=== PATIENT | female | born 2000 | race Two or more races ===

== ENCOUNTER 2020-06-09 17:02 | Emergency (ER) | payer OTHER ==
[~2020-06-09] VITALS: Ht 157.5 cm; Wt 70.3 kg
== END 2020-06-09 21:20 | disposition home or self-care (01) ==
LOC: ER 17:02
DX: N92.1 Excessive and frequent menstruation with irregular cycle (principal)

== ENCOUNTER 2025-07-06 13:36 | Emergency (ER) | payer OTHER ==
[~2025-07-06] VITALS: Ht 157.5 cm; Wt 86.2 kg
[2025-07-06] MEDS ORDERED: [UNRECOGNIZED DRUG - OTHER] PO (14:54)
[2025-07-06] MEDS ORDERED: CHILDREN'S ASPI81 MG PO (14:55)
[2025-07-06 16:05] LABS: BASO % 0.3 % (0.1-1.2); EOS # 0.06 (0.04-0.54); EOS % 0.5 % (0.7-7.0); LYMPH # 2.10 (1.18-3.74); LYMPH % 17.9 % (19.3-53.1); MEAN PLATELET VOLUME 9.00 fl (9.4-12.4); MONO # 0.55 (0.24-0.82); MONO % 4.7 % (4.7-12.5); NEUT # 8.98 (1.56-6.13); NEUT % 76.3 % (34.0-71.1); RED CELL DISTRIBUTION WIDTH 11.4 % (11.6-14.4)
[2025-07-06 16:54] LABS: BUN CREA RATIO 19.0 (7.0-25.0); CREATININE SERUM 0.53 mg/dL (0.55-1.02); GFR 140.55; GLUCOSE FASTING 94.0 mg/dL (65-100); OSMOLALITY SERUM 278.0 MOSM/KG (275-295)
[2025-07-06 16:56] LABS: URINE APPEARANCE Clear; URINE BILIRRUBIN Negative (NEGATIVE); URINE BLOOD Small; URINE COLOR Yellow; URINE GLUCOSE Negative (NEGATIVE); URINE KETONE Trace (NEGATIVE); URINE LEUKOCYTE Trace; URINE NITRATE Negative; URINE PROTEIN Negative (NEGATIVE); URINE UROBILINOGEN 0.2 E.U./dl
[2025-07-06 16:59] LABS: URINE BACTERIA 612.9 uL (0.0-1933); URINE EPITHELIAL CELLS 12.1 uL (0.0-38.8); URINE RBC 3.6 uL (0.0-20.8); URINE WBC 9.0 uL (0.0-23.2)
[2025-07-06 17:03] LABS: URINE CAST 0.14 uL (0.0-1.40)
[2025-07-06 17:35] LABS: HCG QUANTITATIVE 4119.0 mUI/mL (1-3)
== END 2025-07-06 19:56 | disposition home or self-care (01) ==
LOC: ER 13:36
PROVIDERS: Emergency Medicine
DX: O20.8 Other hemorrhage in early pregnancy (principal); Z3A.01 Less than 8 weeks gestation of pregnancy

== ENCOUNTER 2025-07-16 08:27 | Emergency (ER) | payer OTHER ==
[~2025-07-16] VITALS: Ht 152.4 cm; Wt 83.5 kg
[~2025-07-16 08:27] MED LIST: CHILDREN'S ASPI81 MG PO; [UNRECOGNIZED DRUG - OTHER] PO
[2025-07-16 09:41] LABS: BASO % 0.5 % (0.1-1.2); EOS # 0.08 (0.04-0.54); EOS % 1.0 % (0.7-7.0); LYMPH # 1.71 (1.18-3.74); LYMPH % 20.7 % (19.3-53.1); MEAN PLATELET VOLUME 8.90 fl (9.4-12.4); MONO # 0.42 (0.24-0.82); MONO % 5.1 % (4.7-12.5); NEUT # 5.98 (1.56-6.13); NEUT % 72.5 % (34.0-71.1); RED CELL DISTRIBUTION WIDTH 11.7 % (11.6-14.4)
== END 2025-07-16 18:10 | disposition home or self-care (01) ==
LOC: ER 08:27
PROVIDERS: General Practice
DX: O20.8 Other hemorrhage in early pregnancy (principal); Z3A.08 8 weeks gestation of pregnancy

== ENCOUNTER 2025-07-23 08:30 | Emergency (ER) | payer OTHER ==
[~2025-07-23] VITALS: Ht 157.5 cm; Wt 83.5 kg
[2025-07-23] MEDS ORDERED: RINGERS SOLUTION,LACTATED 1,000 ML IV SCH (09:00)
[2025-07-23] MEDS ORDERED: MORPHINE SULFATE 4 MG/ML VIAL IV ONE (09:00)
[2025-07-23 09:22] LABS: BASO % 0.4 % (0.1-1.2); EOS # 0.10 (0.04-0.54); EOS % 0.9 % (0.7-7.0); LYMPH # 2.43 (1.18-3.74); LYMPH % 22.6 % (19.3-53.1); MEAN PLATELET VOLUME 8.80 fl (9.4-12.4); MONO # 0.54 (0.24-0.82); MONO % 5.0 % (4.7-12.5); NEUT # 7.61 (1.56-6.13); NEUT % 70.8 % (34.0-71.1); RED CELL DISTRIBUTION WIDTH 11.1 % (11.6-14.4)
[2025-07-23 09:58] LABS: INR 1.07
[2025-07-23 10:16] LABS: ALT/SGPT 28.0 U/L (12-78); AST/SGOT 15.0 U/L (15-37); BILIRUBIN TOTAL 0.46 mg/dL (0.3-1.2); BUN CREA RATIO 16.0 (7.0-25.0); CREATININE SERUM 0.49 mg/dL (0.55-1.02); GFR 153.88; GLOBULINA 3.3 G/DL (2.4-3.5); GLUCOSE FASTING 88.0 mg/dL (65-100); HCG QUANTITATIVE 6348.0 mUI/mL (1-3); OSMOLALITY SERUM 277.0 MOSM/KG (275-295)
== END 2025-07-23 14:21 | disposition home or self-care (01) ==
LOC: ER 08:30
PROVIDERS: General Practice
DX: N93.8 Other specified abnormal uterine and vaginal bleeding (principal); N83.201 Unspecified ovarian cyst, right side